=== PATIENT | female | born 1940 | race Hispanic/Latino ===

== ENCOUNTER 2016-08-01 06:09 | Day surgery (SDC) | payer MEDICARE ==
[2016-08-01] MEDS ORDERED: ECOTRIN PO ONE (06:44)
[2016-08-01] MEDS ORDERED: NACL 0.9% 500 ML 500 ML IV SCH (07:00)
[2016-08-01 07:59] LABS: Eosinophils % (Auto) 2.8 % (0.0-4.3); Hematocrit 39.7 % (30.3-42.9); Hemoglobin 12.8 gm/dl (10.1-14.3); Mean Corpuscular HGB Conc 32 % (30-34); Mean Corpuscular Hemoglobin 30 pg (28-32); Mean Corpuscular Volume 94 fl (79-97); Platelet Count 178 K/mm3 (140-440); Red Blood Count 4.23 M/mm3 (3.65-5.03); White Blood Count 4.3 K/mm3 (4.5-11.0)
[2016-08-01 08:05] LABS: Anion Gap 18 mmol/L; BUN/Creatinine Ratio 17.77; Blood Urea Nitrogen 16 mg/dL (7-17); Calcium 9.4 mg/dL (8.4-10.2); Carbon Dioxide 24 mmol/L (22-30); Chloride 108.2 mmol/L (98-107); Glucose 98 mg/dL (65-100); Sodium 146 mmol/L (137-145)
[2016-08-01] MEDS ORDERED: VERSED ONE (08:12)
[2016-08-01] MEDS ORDERED: HEPARIN 10,000 UNITS/10 ML ONE (08:12)
[2016-08-01] MEDS ORDERED: CALAN ONE (08:12)
[2016-08-01] MEDS ORDERED: XYLOCAINE 2% INFILTRATI ONE (08:12)
[2016-08-01] MEDS ORDERED: HEPARIN/NS 5000 UNIT/500ML(CATH LAB) 1,000 ML IR ONE (08:12)
[2016-08-01] MEDS ORDERED: SUBLIMAZE ONE (08:13)
[2016-08-01 08:21] LABS: INR 0.98 (0.87-1.13)
--- NOTE | 2016-08-01 11:28 | Short Stay Summary ---
Short Stay Documentation Date of service: 08/01/16 - History H&P: obtained from office - Allergies and Medications Current Medications: Allergies No Known Allergies Allergy (Unverified 08/01/16 06:10) Home Medications Medication Instructions Recorded Confirmed Last Taken Type Aspirin [Adult Low Dose Aspirin EC] 81 mg PO DAILY 08/01/16 08/01/16 07/31/16 History Multivitamin Tab [Multiple Vitamin 1 tab PO DAILY 08/01/16 08/01/16 07/31/16 History TAB (Theragran)] Simvastatin [Zocor TAB] 40 mg PO QHS 08/01/16 08/01/16 07/31/16 History Valsartan [Diovan] 160 mg PO DAILY 08/01/16 08/01/16 07/31/16 History Active Medications Sodium Chloride (Nacl 0.9% 500 Ml) 500 mls @ 50 mls/hr IV DIRECT ANIA Stop: 08/01/16 16:59 Last Admin: 08/01/16 07:45 Dose: 50 mls/hr - Brief post op/procedure progress note Date of procedure: 08/01/16 Pre-op diagnosis: chest pain Post-op diagnosis: same Procedure: C - see cath report Anesthesia: local Estimated blood loss: none Pathology: none Condition: stable - Disposition Condition at discharge: Stable - Discharge Diagnoses (1) HTN (hypertension) Status: Chronic Qualifiers: Hypertension type: H (2) Hyperlipidemia Status: Chronic Qualifiers: Hyperlipidemia type: H (3) Chest pain Status: Chronic Qualifiers: Chest pain type: C Ischemic chest pain type: I Short Stay Discharge Plan Activity: advance as tolerated Diet: low fat, low cholesterol, low salt Wound: open to air, keep clean and dry Follow up with: SANTOS GOYAL MD [Staff Physician] - 7 Days Forms: CardCath PCI D/C Instructions
--- NOTE | 2016-08-01 12:04 | Cardiac Catherization Report ---
CARDIAC CATHETERIZATION REPORT CLINICAL INFORMATION: The patient is a 75-year-old white female who was evaluated by Dr. Romero in the office for complaints of chest pain and her pain is recurrent precordial chest pain radiating to the left extremity. Mostly at night, 3 to 4 times a week. The patient had a Lexiscan stress MPI was found to be negative for ischemia. Considering her persistent chest pain with strong family history. The patient is scheduled for cardiac catheterization for definitive diagnosis and treatment. The patient is aware of the procedure, potential complications and alternatives of therapy available. DESCRIPTION OF PROCEDURE: The patient was brought to the catheterization laboratory in a fasting condition. The right wrist area and forearm thoroughly cleansed with Betadine solution and sterile drapes were applied, local anesthesia was achieved using 2% Xylocaine. Right radial artery puncture was made using 21-gauge arterial puncture needle. Subsequently, a 5-Luxembourger standard sheath was introduced. A 5-Luxembourger multipurpose catheter was used to obtain the angiograms of the left ventricle done in PARKER projection using hand injection followed by angiograms of the left coronary artery and right coronary artery with the same catheter. At the end of the procedure, catheter and sheath were removed. Good hemostasis was achieved with pressure bandage. Following findings were noted. HEMODYNAMICS: 1. Opening aortic pressure 134/64, left ventricular pressure 138/20. No gradient across the aortic valve. Estimated ejection fraction of 65%. 2. Left ventriculogram done in PARKER projection showed normal sized left ventricle with normal contractility. End-diastolic and systolic volumes are normal. Mitral regurgitation could not be evaluated because of limited amount of dye injected. 3. Left coronary artery arises normally from left coronary cusp. Left main, LAD and its branches, circumflex artery and its branches are angiographically smooth and normal. 4. Right coronary artery dominant vessel arises normally from right coronary cusp, angiographically smooth and normal. FINAL IMPRESSION: 1. Normal left ventricular systolic function with end diastolic pressure being upper limits of normal. 2. Normal coronary anatomy angiographically. 3. Right radial artery was used for access. Procedure was uncomplicated. 4. At this time etiology of her chest pain, she is not clear. The above findings cannot explain her chest pains. Same was explained to the patient and family. [facility]# [id number] GERALD/SANDRA ANDERSON
[2016-08-01 12:47] VITALS: BP 118/73
== END 2016-08-01 13:10 | disposition home or self-care (01) ==
LOC: OPU 06:09
PROVIDERS: ATTEND Internal Medicine
DX: R94.39 Abnormal result of other cardiovascular function study (principal); R07.2 Precordial pain; K21.9 Gastro-esophageal reflux disease without esophagitis; I10 Essential (primary) hypertension; E78.5 Hyperlipidemia, unspecified; Z85.42 Personal history of malignant neoplasm of other parts of uterus; Z90.710 Acquired absence of both cervix and uterus; Z98.890 Other specified postprocedural states; Z79.899 Other long term (current) drug therapy; Z72.89 Other problems related to lifestyle
CPT/HCPCS: 36415; 80048; 85025; 85610; 85730; 93005; 93010; 93458; C1894; J1644; J2250; J3010; J7040; Q9967